=== PATIENT | female | born 2000 | race Native Hawaiian/Other Pacific Islander ===

== ENCOUNTER 2025-08-23 16:24 | Outpatient (AMB) | payer OTHER, SELFPAY ==
--- NOTE | 2025-08-23 16:28 | MHC.PC.OV ---
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 Supervision of first : The patient is currently at 23.5 weeks gestation with her first . She is under the care of an PHOTOSTAT OPERATOR HELPER, Dr. Ladonna Olivares, for her care. She reports that her is going well and that her earlier nausea has resolved. Her Pap smear was normal. History of elevated blood pressure in : The patient reports a slightly elevated blood pressure reading of 141 at one point during her , for which she was advised to monitor it. She was prescribed baby aspirin for preeclampsia prophylaxis but states she is not taking it consistently because she would rather not be on a blood thinner. History of cervical polyp: The patient underwent a cervical polyp removal two weeks ago. She had her post-operative checkup this morning, and she reports that everything went well. Surgical History: - Cervical polyp removal two weeks prior to the visit. - Tonsillectomy as a child. Medications: - vitamins - probiotic - Baby aspirin: Prescribed but not taking consistently. Social History: - The patient is 23.5 weeks into her first with a male fetus. Family History: - Father: Asthma. - General: Reports most of her family has diabetes. - Maternal grandfather: from stomach cancer. - Paternal grandfather: History of Parkinson's disease. Diagnostic Results: - Pap smear: Patient reports results were normal. Past Medical History - First , currently at 23.5 weeks gestation. - History of a cervical polyp, removed two weeks ago. - Reports slightly elevated blood pressure on one occasion during the current . - Normal Pap smear reported. Health Maintenance - The patient is establishing care as a new patient. - She currently receives care from an PHOTOSTAT OPERATOR HELPER. - Comprehensive lab work was ordered: CBC, comprehensive metabolic panel, hemoglobin A1c, hepatitis B, hepatitis C, HIV, lipid panel, magnesium, syphilis screen, chlamydia screen, urinalysis, vitamin B12, folate, and vitamin D. - Discussed preeclampsia prophylaxis with baby aspirin. - The patient reports a normal Pap smear. [facility] Surgical History (Updated 08/23/25 @ 16:43 by Haroldo Sauceda MA) H/O cervical polypectomy Hx of tonsillectomy Family History (Updated 08/23/25 @ 16:37 by Haroldo Sauceda MA) Father Diabetes Asthma Maternal Aunt Diabetes Maternal Uncle Diabetes Paternal Aunt Diabetes Paternal Uncle Diabetes Maternal Grandfather Stomach cancer Social History (Updated 08/23/25 @ 16:38 by Haroldo Sauceda MA) Housing: House Alcohol intake: never Patient Tobacco Use Status: Never used Tobacco e-Cigarette/Vaping Use: Never Used service: No Current occupational status: unemployed Cognitive needs: No Hearing needs: No Vision needs: No Questionnaire PHQ-9 Over the last 2 weeks, how often have you been bothered by any of the following problems? 1. Little interest or pleasure in doing things: not at all 2. Feeling down, depressed, or hopeless: not at all 3. Trouble falling or staying asleep, or sleeping too much: several days 4. Feeling tired or having little energy: nearly every day 5. Poor appetite or overeating: not at all 6. Feeling bad about yourself - or that you are a failure or have let yourself or your family down: not at all 7. Trouble concentrating on things, such as reading the newspaper or watching television: not at all 8. Moving or speaking so slowly that other people could have noticed. Or the opposite - being so fidgety or restless that you have been moving around a lot more than usual: not at all 9. Thoughts that you would be better off or of hurting yourself in some way: not at all Total score: 4 Depression Screening Interpretation: Negative Depression Screening Done: Yes 79686 - PHQ-9 Billing: Yes Source: Developed by Drs. Héctor Albrecht, Carline B.WDalton Carey and colleagues, with an educational maegan from [employer]. Thrive Questionnaire Date Thrive assessed: 08/23/25 I am a: Patient What is your living situation today?: I have a steady place to live Within the past 12 months, did the food you bought not last and you didn't have the money to get more?: Never true Within the past 12 months, did you worry whether your food would run out before you got money to buy more?: Never true Do you have trouble paying for medicines?: No Do you have trouble getting transportation to medical appointments?: No Do you have trouble paying your heating and electricity bill?: No Do you have trouble taking care of your child, family member or friend?: No Are you currently unemployed and looking for a job?: No Are you interested in more education?: No Please select the resources that you would like help with: None Currently or been in a relationship where the following occur: No concerns reported THRIVE Score: 0 AUDIT C Alcohol Use Questionnaire (AUDIT-C) 1. How often do you have a drink containing alcohol?: Never Total Score: 0 KWAME-7 AMB Questionnaire KWAME-7 Date KWAME - 7 assessed: 08/23/25 Feeling nervous, anxious, or on edge: 1 = Several days Not being able to stop or control worryin = Several days Worrying too much about different things: 0 = Not at all Trouble relaxin = Several days Being so restless that it is hard to sit still: 0 = Not at all Becoming easily annoyed or irritable: 0 = Not at all Feeling afraid as if something awful might happen: 1 = Several days Total KWAME-7 score (0-4 normal; 5-9 mild; 10-14 moderate; 15-21 severe): 4 Source: Developed by Drs. Héctor Albrecht, Dalton Piedra and colleagues, with an educational maegan from [employer]. KWAME-7 Assessment Billing KWAME-7 Assessment Tool: KWAME-7 Assessment 45057 Review of Systems Narrative Review of Systems - Constitutional: Reports is going fine. - Gastrointestinal: Reports resolved nausea of . - Cardiovascular: Reports one instance of slightly elevated blood pressure. - Musculoskeletal: Denies swelling in her lower legs. 10-point ROS reviewed and negative except as noted in HPI Physical exam (Primary Care) Vital Signs: Last Vital Signs Temp 98 F 08/23/25 16:38 Pulse 110 H 08/23/25 16:38 Resp 18 08/23/25 16:38 BP 125/68 08/23/25 16:38 Pulse Ox 96 08/23/25 16:38 Oxygen Delivery Method Room Air 08/23/25 16:38 BMI result Body Mass Index 30.8 Tobacco/Smoking Status: Tobacco use Status Tobacco use date assessed 08/23/25 08/23/25 16:43 Patient Tobacco Use Status Never used Tobacco 08/23/25 16:43 e-Cigarette/Vaping Use Never Used 08/23/25 16:43 PHQ-9: PHQ-9 Score PHQ-9: Total score 4 08/23/25 16:43 Depression Screening Interpretation: Negative Thrive Assessment: Date of Thrive Assessment Date Thrive assessed 08/23/25 08/23/25 16:43 Currently or been in a relationship where the following occur: No concerns reported Narrative Physical Exam General: Well-appearing, in no acute distress. Vital signs: Slightly elevated blood pressure noted at 141. HEENT: Normocephalic, atraumatic. PERRLA, EOMI. Conjunctiva clear, sclera anicteric. Oropharynx clear, mucous membranes moist. TMs intact bilaterally. Neck: Supple, no lymphadenopathy, no thyromegaly, no JVD or carotid bruits. Cardiovascular: RRR, normal S1/S2, no murmurs, rubs, or gallops. Peripheral pulses 2+ and symmetric. No edema. Respiratory: Lungs clear to auscultation bilaterally, no wheezes, rales, or rhonchi. Normal effort. Abdomen: Soft, non-tender, non-distended. Normoactive bowel sounds. No hepatosplenomegaly, no masses. MSK: Full range of motion, no joint swelling or deformity. Normal gait. Skin: Warm, dry, intact. No rashes, lesions, or pallor. Neuro: Alert and oriented x3. Cranial nerves II-XII intact. Strength 5/5 throughout. Sensation intact. Reflexes 2+ symmetric. Normal coordination and gait. Psych: Appropriate mood and affect. Normal judgment and insight. Coding Level of Care Code New Pt Level 4 (35146) Diagnoses Second trimester Z34.92 Tachycardia R00.0 Additional Codes KWAME-7 Assessment Billing - KWAME-7 Assessment Tool: KWAME-7 Assessment 08123 ([id number]) PHQ-9 - 37977 - PHQ-9 Billing: Yes ([id number]) Assessment & Plan Assessment & Plan (1) Second trimester : Code(s): Z34.92 - Encounter for supervision of normal , unspecified, second trimester (2) Tachycardia: Code(s): R00.0 - Tachycardia, unspecified Plan Consent Patient was informed and verbally consented to the use of an ambient scribe for clinic note documentation during this visit. Plan 1. Establishment Of Care - Will serve as the patient's primary care physician. - The practice will be able to provide pediatric care for her , as pediatric vaccines are expected to be available in October, prior to her December due date. 2. Supervision Of First - Ordered comprehensive baseline labs due to lack of available records: CBC, CMP, HbA1c, hepatitis B and C, HIV, lipid panel, magnesium, syphilis screen, chlamydia screen, urinalysis, vitamin B12, folate, and vitamin D. - Patient will continue her primary care with her PHOTOSTAT OPERATOR HELPER. heart rate 136 beats per minute Fundal height 23 and a 0.5 cm 3. Elevated Blood Pressure Reading In - Educated the patient that the baby aspirin prescribed by her OB is for preeclampsia prophylaxis. - Informed the patient that labetalol is a potential medication option if her blood pressure remains high. Discussion Notes I introduced myself to the patient and confirmed her reason for the visit is to establish primary care. I explained that because I do not have her lab results from her PHOTOSTAT OPERATOR HELPER, I would order a comprehensive set of labs to get a baseline of her health. Regarding her elevated blood pressure, I explained that her PHOTOSTAT OPERATOR HELPER likely prescribed baby aspirin as a prophylactic measure against preeclampsia. I performed a physical exam, and the baby's heartbeat sounded good with a rate of 136 bpm. I informed the patient that I am a family medicine physician and can see children as well, which would make care convenient for her and her after he is born. I also let her know that our facility will be equipped with pediatric vaccines by October, which aligns well with her December due date. Patient Instructions - Please go to the lab to have your blood drawn for the ordered tests. - Continue following up with your PHOTOSTAT OPERATOR HELPER for your care. - Continue to watch your blood pressure as your OB recommended. - After your baby is born in December, you can bring him here for his pediatric care, as we will have vaccines available starting in October. Medical Decision Making The patient is a 25-year-old at 23.5 weeks gestation presenting to establish primary care. As I do not have access to her outside medical records from her PHOTOSTAT OPERATOR HELPER, a comprehensive set of baseline labs is clinically indicated to assess her overall health status and screen for conditions relevant to . This includes a CBC for expected dilutional anemia, a CMP to assess renal and hepatic function, an HbA1c given the strong family history of diabetes, and a full panel of infectious disease screenings. Physical exam findings, including a heart rate of 136 bpm and a fundal height consistent with gestational age, are reassuring. Given her report of a prior elevated blood pressure reading, I reinforced the importance of the baby aspirin prescribed by her OB, explaining its role in preeclampsia prophylaxis. The plan is to serve as her primary care physician for her general health needs while she continues to receive specialized care from her PHOTOSTAT OPERATOR HELPER, and to establish continuity by also providing care for her . Total time spent caring for the patient today was 20 minutes. This includes time spent before the visit reviewing the chart, time spent documenting, and time spent reviewing laboratory results, diagnostic imaging, medications, performing a medically necessary evaluation, counseling on diagnoses, care coordination, ordering appropriate tests, ordering appropriate medications, review of tests performed by other providers, reporting test results with the patient Orders: Orders Complete Blood Count Auto Diff 08/23/25 Z13.9 - Encounter for screening, unspecified Hemoglobin A1c 08/23/25 Z13.9 - Encounter for screening, unspecified Hepatitis B Surface Antigen 08/23/25 Z13.9 - Encounter for screening, unspecified Hepatitis C Antibody 08/23/25 Z13.9 - Encounter for screening, unspecified HIV Ab/Ag 08/23/25 Z13.9 - Encounter for screening, unspecified Lipid Panel 08/23/25 Z13. - Encounter for screening, unspecified CT NG by PCR Urine 08/23/25 Z13.9 - Encounter for screening, unspecified Syphilis Screen 08/23/25 Z13.9 - Encounter for screening, unspecified Comprehensive Met. Panel 08/23/25 Z13.9 - Encounter for screening, unspecified Hepatitis B Surface Antibody 08/23/25 Z13.9 - Encounter for screening, unspecified Magnesium 08/23/25 Z13.9 - Encounter for screening, unspecified Vitamin D 1,25 dihydroxy 08/23/25 Z13.9 - Encounter for screening, unspecified Vitamin B12 and Folate 08/23/25 Z13.9 - Encounter for screening, unspecified UA CC w/rflx Micro + Cult 08/23/25 Z13.9 - Encounter for screening, unspecified
[2025-08-23 16:38] VITALS: BP 125/68; PULSE 110; RESP 18; TEMP 36.6; O2SAT 96; BMI 30.8
== END 2025-08-23 17:04 | disposition home or self-care (01) ==
LOC: HO.HMCFMS 16:25
PROVIDERS: PCP Student in an Organized Health Care Education/Training Program; Visit Provider Student in an Organized Health Care Education/Training Program
DX: Z34.92 Encounter for supervision of normal pregnancy, unspecified, second trimester (principal); R00.0 Tachycardia, unspecified

== ENCOUNTER → 2025-08-23 16:24 | Outpatient (BNVA) | payer OTHER, SELFPAY | PROVIDERS: PCP Student in an Organized Health Care Education/Training Program; Visit Provider Student in an Organized Health Care Education/Training Program | DX: O26.892 Other specified pregnancy related conditions, second trimester (principal); R00.0 Tachycardia, unspecified; Z3A.23 23 weeks gestation of pregnancy; Z13.31 Encounter for screening for depression; Z13.39 Encounter for screening examination for other mental health and behavioral disorders | CPT/HCPCS: 96127; 99202 ==

== ENCOUNTER 2025-08-24 10:59 | Outpatient (REF) | payer OTHER, SELFPAY ==
[2025-08-24 13:16] LABS: MANUAL DIFF FLAG NO
[2025-08-24 13:28] LABS: Hematocrit 36.9 % (37.0-47.0); Hemoglobin 12.3 g/dl (12.0-16.0); Imm Gran Abs Auto 0.21 X10*3/uL (0.00-0.03); Imm Gran Pct Auto 1.7 % (0.0-0.4); Lymphocytes Absolute Auto 2.0 X10*3/uL (1.2-4.9); Mean Corpuscular HGB Conc 33.3 g/dl (31.0-35.0); Mean Corpuscular Hemoglobin 29.2 pg (27.0-33.0); Mean Corpuscular Volume 87.6 fL (80.0-98.0); NRBC Abs Auto 0.000 X10*3/uL (0.0-0.012); NRBC Pct Auto 0.0 /100WBC (0.0-0.2); Platelet Count 229 X10*3/uL (160-400); Red Blood Count 4.21 X10*6/uL (4.20-5.50); White Blood Count 12.6 X10*3/uL (4.8-10.8)
[2025-08-24 15:06] LABS: CT PCR Urine NOT DETECTED (Not Detect.); NG PCR Urine NOT DETECTED (Not Detect.)
[2025-08-24 18:21] LABS: Alanine Aminotransferase 10 U/L (0-31); Albumin Level 3.9 g/dL (3.5-5.0); Alkaline Phosphatase 128 U/L (39-117); Anion Gap 13 (12-20); Aspartate Amino Transferase 26 U/L (5-31); Blood Urea Nitrogen 5 mg/dL (9-16); Calcium 9.5 mg/dL (8.4-10.2); Carbon Dioxide 21 mmol/L (22-29); Chloride 106 mmol/L (96-108); Cholesterol 276 mg/dL (<200); Estimated Glomerular Filt Rate > 60; HDL Cholesterol 71 mg/dL (>40); Magnesium 2.0 mg/dL (1.6-2.6); Potassium 4.0 mmol/L (3.3-5.1); Sodium 136 mmol/L (135-145); Total Protein 7.4 g/dL (6.5-8.0); Triglycerides 516 mg/dL (<150)
[2025-08-24 18:22] LABS: Appearance Urine Clear; Glucose Urine UA 500 mg/dL (Negative); PH 6.0 (5.0-9.0); Specific Gravity - Urine 1.015 (1.005-1.025); UMIC TRIGGER UACC YES
[2025-08-24 18:34] LABS: UACC Culture Trigger YES
[2025-08-24 18:49] LABS: Folate 10.9 ng/mL (> or = 4.0); Vitamin B12 331 pg/mL (200-900)
[2025-08-26 03:51] LABS: Syphilis Screen Nonreactive (Nonreactive)
[2025-08-26 04:46] LABS: HBS Num1 0.33 mIU/mL (0-7.99); HBsAGNum1 0.51 S/CO (0.00-0.99); HIV Num 1 0.07 S/CO (0.00-0.99); Hepatitis B Surface Antigen Negative (Negative); ~HepC Num1 0.07 S/CO (0.00-0.79); ~Hepatitis B Surface Antibody NONREACTIVE (Nonreactive); ~Hepatitis C Antibody Nonreactive (Nonreactive)
[2025-08-29 17:33] LABS: VITAMIN D (1,25 OH) D3 196 pg/mL; Vit D (1,25-Dihydroxy) Total 196 pg/mL (18-72); Vitamin D (1,25 OH) D2 <8 pg/mL
== END 2025-08-24 11:00 | disposition home or self-care (01) ==
LOC: HO.HKASLDS 10:59
PROVIDERS: PCP Student in an Organized Health Care Education/Training Program; Visit Provider Student in an Organized Health Care Education/Training Program
DX: Z11.4 Encounter for screening for human immunodeficiency virus [HIV] (principal); Z13.1 Encounter for screening for diabetes mellitus; Z13.21 Encounter for screening for nutritional disorder; Z13.6 Encounter for screening for cardiovascular disorders; Z20.2 Contact with and (suspected) exposure to infections with a predominantly sexual mode of transmission
CPT/HCPCS: 80053; 80061; 81001; 82607; 82652; 82746; 83036; 83735; 85025; 86706; 86780; 86803; 87086; 87340; 87389; 87491; 87591

== ENCOUNTER 2025-09-06 13:21 | Outpatient (AMB) | payer OTHER, SELFPAY ==
[2025-09-06 13:22] VITALS: BP 127/74; PULSE 98; TEMP 36.8; O2SAT 98; BMI 31.0
--- NOTE | 2025-09-06 13:22 | MHC.PC.OV ---
Vital Signs 09/06/25 13:22 Height 5 ft 3.75 in Weight 179 lb BMI 31.0 BP 127/74 Blood Pressure Location Rt brachial Position Sitting Pulse 98 Pulse Source Pulse Oximeter Temp 98.2 F Temp Source Oral Pulse Oximetry (%) 98 Oxygen Delivery Method Room Air Oxygen Flow Rate 99 Intake Visit Reasons: 2 wk f/u - lab review [employer] Radio Technician Required: No Accompanied by: Self / Same As Patient Allergies [email or web address] (From [employer]) Allergy (Severe, Verified 09/06/25 13:26) Unknown Tobacco use date assessed: 09/06/25 Dental Screening Dental Screen Date: 09/06/25 Did you have a dental visit in the last 12 months?: Yes Did you have a dental problem in the last 6 months where you did not have access to dental care?: Yes Was dental information given to patient?: Yes HPI HPI Comments History of Present Illness Details History of Present Illness The patient is a 25 year old individual presenting for a review of laboratory results. , unspecified trimester: The patient is currently with an estimated due date of December 15. The last menstrual period was reported as March 10. The patient had a scheduled appointment with DINING SERVICE SUPERVISOR for a glucose tolerance test, which was rescheduled because it was considered too early to perform. Hypertriglyceridemia: Recent lab results show a triglyceride level of 516 mg/dL. The patient acknowledges consuming a lot of sweet things and juices, and reports having more of a sweet tooth than before the . Hypervitaminosis D: Recent lab work revealed a vitamin D level of 196. The patient is taking vitamin D supplements. Medications: - Vitamin D supplements Social History: - Diet: The patient reports a diet high in sweets and juices. - The patient notes an increased sweet tooth since becoming . - Family Planning: The patient is currently with a due date of December 15. Diagnostic Results: - Triglycerides: 516 mg/dL (normal < 150 mg/dL) - Vitamin D: 196 - LDL: Cannot be calculated due to high triglycerides. - White blood cell count: Normal - Liver function tests: Normal - Sodium: Normal - HIV: Negative - Hepatitis B: Negative - Hepatitis C: Negative Past Medical History - Health Maintenance - A glucose tolerance test scheduled with DINING SERVICE SUPERVISOR was postponed because it was considered too early to be performed. - Dietary counseling was provided for elevated triglycerides, focusing on reducing the intake of sweets and juices. - A referral to a registered dietitian is planned for further education. - Screenings for HIV, Hepatitis B, and Hepatitis C were conducted with negative results. [facility] Medical History (Updated 09/06/25 @ 14:23 by Jared Rivers MD) Elevated alkaline phosphatase level Hyperlipidemia Hypervitaminosis D Hypertriglyceridemia Surgical History H/O cervical polypectomy Hx of tonsillectomy Family History Father Diabetes Asthma Maternal Aunt Diabetes Maternal Uncle Diabetes Paternal Aunt Diabetes Paternal Uncle Diabetes Maternal Grandfather Stomach cancer Social History Housing: House Alcohol intake: never Patient Tobacco Use Status: Never used Tobacco e-Cigarette/Vaping Use: Never Used service: No Current occupational status: unemployed Cognitive needs: No Hearing needs: No Vision needs: No Questionnaire PHQ-9 Over the last 2 weeks, how often have you been bothered by any of the following problems? 1. Little interest or pleasure in doing things: not at all 2. Feeling down, depressed, or hopeless: not at all 3. Trouble falling or staying asleep, or sleeping too much: several days 4. Feeling tired or having little energy: nearly every day 5. Poor appetite or overeating: not at all 6. Feeling bad about yourself - or that you are a failure or have let yourself or your family down: not at all 7. Trouble concentrating on things, such as reading the newspaper or watching television: not at all 8. Moving or speaking so slowly that other people could have noticed. Or the opposite - being so fidgety or restless that you have been moving around a lot more than usual: not at all 9. Thoughts that you would be better off or of hurting yourself in some way: not at all Total score: 4 Depression Screening Interpretation: Negative Depression Screening Done: Yes 93451 - PHQ-9 Billing: Yes Source: Developed by Drs. Héctor Albrecht, Carline Hilliard, Dalton Neville and colleagues, with an educational maegan from [employer]. Thrive Questionnaire Date Thrive assessed: 09/06/25 I am a: Patient What is your living situation today?: I have a steady place to live Within the past 12 months, did the food you bought not last and you didn't have the money to get more?: Never true Within the past 12 months, did you worry whether your food would run out before you got money to buy more?: Never true Do you have trouble paying for medicines?: No Do you have trouble getting transportation to medical appointments?: No Do you have trouble paying your heating and electricity bill?: No Do you have trouble taking care of your child, family member or friend?: No Are you currently unemployed and looking for a job?: No Are you interested in more education?: No Please select the resources that you would like help with: None Currently or been in a relationship where the following occur: No concerns reported THRIVE Score: 0 AUDIT C Alcohol Use Questionnaire (AUDIT-C) 1. How often do you have a drink containing alcohol?: Never Total Score: 0 KWAME-7 AMB Questionnaire KWAME-7 Date KWAME - 7 assessed: 09/06/25 Feeling nervous, anxious, or on edge: 1 = Several days Not being able to stop or control worryin = Several days Worrying too much about different things: 0 = Not at all Trouble relaxin = Several days Being so restless that it is hard to sit still: 0 = Not at all Becoming easily annoyed or irritable: 0 = Not at all Feeling afraid as if something awful might happen: 1 = Several days Total KWAME-7 score (0-4 normal; 5-9 mild; 10-14 moderate; 15-21 severe): 4 Source: Developed by Drs. Héctor Albrecht, Carline Hilliard, Dalton Neville and colleagues, with an educational maegan from [employer]. KWAME-7 Assessment Billing KWAME-7 Assessment Tool: KWAME-7 Assessment 51511 Review of Systems Narrative Review of Systems 10-point ROS reviewed and negative except as noted in HPI Physical exam (Primary Care) Vital Signs: Last Vital Signs Temp 98.2 F 09/06/25 13:22 Pulse 98 09/06/25 13:22 BP 127/74 09/06/25 13:22 Pulse Ox 98 09/06/25 13:22 Oxygen Delivery Method Room Air 09/06/25 13:22 Oxygen Flow Rate 99 09/06/25 13:22 BMI result Body Mass Index 31.0 Tobacco/Smoking Status: Tobacco use Status Tobacco use date assessed 09/06/25 09/06/25 13:30 Patient Tobacco Use Status Never used Tobacco 09/06/25 13:23 e-Cigarette/Vaping Use Never Used 09/06/25 13:23 PHQ-9: PHQ-9 Score PHQ-9: Total score 4 09/06/25 13:24 Depression Screening Interpretation: Negative Thrive Assessment: Date of Thrive Assessment Date Thrive assessed 09/06/25 09/06/25 13:23 Currently or been in a relationship where the following occur: No concerns reported Narrative Physical Exam General: Well-appearing, in no acute distress. Vital signs: Within normal limits. HEENT: Normocephalic, atraumatic. PERRLA, EOMI. Conjunctiva clear, sclera anicteric. Oropharynx clear, mucous membranes moist. TMs intact bilaterally. Neck: Supple, no lymphadenopathy, no thyromegaly, no JVD or carotid bruits. Cardiovascular: RRR, normal S1/S2, no murmurs, rubs, or gallops. Peripheral pulses 2+ and symmetric. No edema. Respiratory: Lungs clear to auscultation bilaterally, no wheezes, rales, or rhonchi. Normal effort. Abdomen: Soft, non-tender, non-distended. Normoactive bowel sounds. No hepatosplenomegaly, no masses. MSK: Full range of motion, no joint swelling or deformity. Normal gait. Skin: Warm, dry, intact. No rashes, lesions, or pallor. Neuro: Alert and oriented x3. Cranial nerves II-XII intact. Strength 5/5 throughout. Sensation intact. Reflexes 2+ symmetric. Normal coordination and gait. Psych: Appropriate mood and affect. Normal judgment and insight. Coding Level of Care Code Est Pt Level 3 (44674) Diagnoses Hypertriglyceridemia E78.1 Hypervitaminosis D E67.3 Second trimester Z34.92 Hyperlipidemia E78.5 Elevated alkaline phosphatase level R74.8 Additional Codes KWAME-7 Assessment Billing - KWAME-7 Assessment Tool: KWAME-7 Assessment 66380 ([id number]) PHQ-9 - 58710 - PHQ-9 Billing: Yes ([id number]) Assessment & Plan Assessment & Plan (1) Hypertriglyceridemia: Code(s): E78.1 - Pure hyperglyceridemia Category: Medical (2) Hypervitaminosis D: Code(s): E67.3 - Hypervitaminosis D Category: Medical (3) Second trimester : Code(s): Z34.92 - Encounter for supervision of normal , unspecified, second trimester (4) Hyperlipidemia: Code(s): E78.5 - Hyperlipidemia, unspecified Category: Medical (5) Elevated alkaline phosphatase level: Code(s): R74.8 - Abnormal levels of other serum enzymes Category: Medical Plan Consent Patient was informed and verbally consented to the use of an ambient scribe for clinic note documentation during this visit. Plan 1. Hypertriglyceridemia - Management will focus on dietary modification due to the patient's . - Recommended reducing intake of sweets, sweetened drinks, artificial sweets, and juices. - Encouraged substituting fruits for artificial sweets. - Pharmacotherapy with fenofibrate or omega-3 fish oil was considered but deferred to avoid medication use during . - A referral will be placed for a registered dietitian to provide education on diet management. - Lab work will be repeated to monitor triglyceride levels. 2. Hypervitaminosis D - The patient's elevated vitamin D level will be monitored. - Lab tests, including vitamin D level, will be repeated after the is complete. 3. , 2nd Trimester - The patient's estimated due date is December 15. - The patient will follow up after delivery for repeat laboratory testing. Discussion Notes I reviewed the patient's recent lab results, highlighting that while most findings were normal, there were some concerns. I explained that the triglyceride level of 516 mg/dL is significantly elevated, which obscures the LDL cholesterol calculation and carries a risk of pancreatitis. We discussed that given the , the best course of action is dietary modification, focusing on reducing the intake of sweets and juices, rather than starting medications like fenofibrate or omega-3s. I informed the patient that I will place a referral to a registered dietitian for further guidance. I also noted the high vitamin D level and explained that this, along with the triglycerides, will be re-evaluated with repeat labs after the patient gives . The patient was reassured that other results, including infectious disease screenings, were negative. Patient Instructions - Please reduce your intake of sweets, sweetened drinks, and juices. - It is okay to have fruits as a substitute for artificial or preservative-laden sweets. - We will be referring you to a registered dietitian who will call you to discuss your diet during . - Plan to return to the clinic for repeat lab tests after you have your baby. - Your other lab results, including for HIV and hepatitis, were negative. - Please come in if any other issues arise before your follow-up appointment. Medical Decision Making The patient is a 25-year-old individual, currently , who presented for a review of recent laboratory studies. The most significant finding is severe hypertriglyceridemia, with a level of 516 mg/dL, which increases the risk for acute pancreatitis. Given the patient's , pharmacologic intervention with agents such as fenofibrate or high-dose omega-3 fatty acids is deferred to avoid any potential risk to the fetus. The primary management strategy is therapeutic lifestyle change, specifically dietary modification, targeting a reduction in simple sugars and sweetened beverages, which the patient admits to consuming frequently. A referral to a registered dietitian is warranted to provide specialized counseling on a safe and effective diet during . The elevated vitamin D level is also noted and is likely due to supplementation; this and the triglycerides will be re-evaluated , as itself can induce metabolic changes. Other labs, including infectious disease screenings, are reassuringly negative. The plan is to follow up after delivery for repeat testing to guide further management. Total Time Statement 20 min Total time spent caring for the patient today includes pre-visit chart review, documentation, review of laboratory and diagnostic imaging results, medication reconciliation, medically necessary evaluation, counseling on diagnoses, care coordination, ordering appropriate tests and medications, review of tests performed by other providers, reporting test results to the patient, and communication with other healthcare providers. Orders: Orders Influenza [id number] Immunization Today Z23 - Encounter for immunization Referrals Nurse Navigator Referral E78.1 - Pure hyperglyceridemia Medications: New Fluarix [id number] (PF) (flu vac ts (6mos up)-PF) 0.5 mL IM ONCE 0.5 mL 0RF NS Z23 - Encounter for immunization
== END 2025-09-06 13:45 | disposition home or self-care (01) ==
LOC: HO.HMCFMS 13:21
PROVIDERS: PCP Student in an Organized Health Care Education/Training Program; Visit Provider Student in an Organized Health Care Education/Training Program
DX: E78.1 Pure hyperglyceridemia (principal); E67.3 Hypervitaminosis D; Z34.92 Encounter for supervision of normal pregnancy, unspecified, second trimester; E78.5 Hyperlipidemia, unspecified; R74.8 Abnormal levels of other serum enzymes

== ENCOUNTER → 2025-09-06 13:21 | Outpatient (BNVA) | payer OTHER, SELFPAY | PROVIDERS: PCP Student in an Organized Health Care Education/Training Program; Visit Provider Student in an Organized Health Care Education/Training Program | DX: O99.282 Endocrine, nutritional and metabolic diseases complicating pregnancy, second trimester (principal); E78.1 Pure hyperglyceridemia; E67.3 Hypervitaminosis D; E78.5 Hyperlipidemia, unspecified; R74.8 Abnormal levels of other serum enzymes; Z3A.00 Weeks of gestation of pregnancy not specified | CPT/HCPCS: 96127; 99212 ==